=== PATIENT | female | born 1985 | race Hispanic/Latino ===

== ENCOUNTER 2023-05-19 10:14 | Emergency (ER) | payer SELFPAY ==
[2023-05-19 10:33] VITALS: BP 131/90; PULSE 78; RESP 16; TEMP 36.1; O2SAT 99
--- NOTE | 2023-05-19 11:05 | ED.ANXIETY ---
HPI - Anxiety General Chief Complaint: Anxiety <Marianela Bolden PA-C - Last Filed: 05/19/23 14:35> Stated Complaint: Anxiety <Marianela Bolden PA-C - Last Filed: 05/19/23 14:35> Time Seen by Provider: 05/19/23 10:39 <Marianela Bolden PA-C - Last Filed: 05/19/23 14:35> History of Present Illness HPI narrative: 38-year-old Albanian-speaking female reports for evaluation for anxiety and depression x2 weeks. Patient states 2 weeks ago, she began having difficulty sleeping and then shortly after began developing symptoms of anxiety depression. States approximately 4 days ago, lost her appetite. Patient describes her symptoms as having an emptiness in her chest and abdomen, feeling sad and desperate. She states her mom recently got very ill in [place], she has been looking for a job and has not had luck finding a job, and she recently had a Pap smear that showed abnormal cells which has all contributed to her symptoms. She states she moved here from [place] 4 years ago. She does have a PCP at [place] and does have a follow-up with her in late May, however would like to be evaluated sooner. She states she was able to get in contact with a psychologist in [place] who referred her to a psychiatrist via video conference. The psychiatrist wrote her prescription for fluoxetine 20 mg and Seroquel 25 mg and was advised to show the prescription to a [facility] provider to fill the scripts. She states she has not taken any medications and has never been medicated for anxiety or depression. She reports thoughts of wanting to harm herself but denies a plan. Denies homicidal ideation, history of suicide attempts, access to firearms, visual or auditory hallucinations, symptoms of kenyatta, drug use, history of psychiatric hospitalizations. She states she usually drinks 1 beer on the weekends but denies daily alcohol use. She is requesting to be evaluated by psychiatric services today. Denies fever, chest pain, shortness of breath, abdominal pain <Marianela Bolden PA-C - Last Filed: 05/19/23 14:35> Related Data Home Medications: Home Medications Medication Instructions Recorded Confirmed fluoxetine 20 mg tablet 20 mg PO DAILY 05/19/23 05/19/23 quetiapine 25 mg tablet (Seroquel) 25 mg DAILY 05/19/23 05/19/23 <Marianela Bolden PA-C - Last Filed: 05/19/23 14:35> Allergies/Adverse Reactions: Allergies Allergy/AdvReac Type Severity Reaction Status Date / Time No Known Allergies Allergy Verified 05/19/23 10:39 <Marianela Bolden PA-C - Last Filed: 05/19/23 14:35> Review of Systems Review of Systems: CONSTITUTIONAL: Denies fever, chills EYES: Denies visual changes, redness, or discharge. ENT: Denies rhinorrhea, congestion, sore throat, or otalgia. CARDIOVASCULAR: Denies chest pain, palpitations, or edema. RESPIRATORY: Denies cough or dyspnea. GASTROINTESTINAL: Denies abdominal pain, nausea, vomiting, or diarrhea. GENITOURINARY: Denies dysuria or hematuria. SKIN: Denies rash or itching. MUSCULOSKELETAL: Denies back pain, joint pain, or myalgia. NEUROLOGIC: Denies headache, numbness, dizziness, or weakness. PSYCHIATRIC: See HPI <Marianela Bolden PA-C - Last Filed: 05/19/23 14:35> [facility] Social History Social History: Social History Substance use type: does not use <Marianela Bolden PA-C - Last Filed: 05/19/23 14:35> Exam Narrative: GENERAL: Well-appearing, in no acute distress. HEAD: Normocephalic NECK: Supple. CHEST: No respiratory distress. Clear to auscultation, no adventitious breath sounds. HEART: Regular rate and rhythm. No murmur heard. Normal peripheral pulses. ABDOMEN: Soft, nontender, normal active bowel sounds. EXTREMITIES: Normal range of motion. No edema. SKIN: Warm, dry, no rash. NEURO: No focal deficits. Alert and oriented x3. PSYCH: Well-dressed and clean. Flat and depressed affect. Pleasant a
[2023-05-19 11:56] LABS: Amphetamine Screen Urine Negative (Negative); Barbiturate Screen Urine Negative (Negative); Benzodiazepines Screen Urine Negative (Negative); Cannabinoid Screen Urine Negative (Negative); Cocaine Screen Urine Negative (Negative); Methadone Screen Urine Negative (Negative); Opiate Screen Urine Negative (Negative); Phencyclidine Screen Urine Negative (Negative)
[2023-05-19 12:19] LABS: Influenza A QL RT-PCR Negative (Negative); Influenza B QL RT-PCR Negative (Negative); SARS-CoV-2 RNA PCR Negative (Negative)
[2023-05-19 12:24] LABS: Basophils Percent Auto 0.6 % (0.2-1.2); Eosinophils Absolute Auto 0.1 K/mm3 (0-0.3); Eosinophils Percent Auto 0.9 % (0-4.4); Hematocrit 40.9 % (37.0-47.0); Hemoglobin 13.2 g/dL (12.0-15.0); Immature Granulocyte Absolute 0.02 K/mm3 (0.00-0.031); Immature Granulocyte Percent A 0.3 % (0-0.5); Lymphocytes Absolute Auto 1.35 K/mm3 (0.9-3.2); Lymphocytes Percent Auto 19.6 % (18.3-44.2); Mean Corpuscular HGB Conc 32.3 g/dl (32-36); Mean Corpuscular Hemoglobin 29.5 pg (26-34); Mean Corpuscular Volume 91.3 fl (80-100); Monocytes Absolute Auto 0.5 K/mm3 (0.1-0.6); Monocytes Percent Auto 6.7 % (2.6-8.5); Neutrophils Percent Auto 71.9 % (45.5-73.1); Platelet Count Result 278 k/mm3 (150-375); Red Blood Count 4.48 M/mm3 (4.2-5.4); Red Cell Distribution Width 12.1 % (11.5-14.5); White Blood Count 6.9 K/mm3 (4.5-10.0)
[2023-05-19 12:34] LABS: Alanine Aminotransferase 17 U/L (6-35); Albumin Level 4.9 g/dL (3.5-5.1); Alkaline Phosphatase 55 U/L (38-126); Anion Gap 8 mmol/L (8-16); Aspartate Amino Transferase 22 U/L (14-36); Bilirubin,Total 0.8 mg/dL (0.2-1.3); Blood Urea Nitrogen 12 mg/dL (7-17); Calcium 9.1 mg/dL (8.4-10.2); Carbon Dioxide 23 mmol/L (22-30); Chloride 107 mmol/L (98-107); Estimated CRCL calculation 80 ml/min; Estimated Glomerular Filt Rate > 60; Glucose 103 mg/dL (65-110); Potassium 4.1 mmol/L (3.4-5.0); Sodium 138 mmol/L (137-145)
[2023-05-19 12:35] LABS: Acetaminophen < 10 ug/mL (10-30); Ethanol < 10 mg/dL (<10); Salicylate < 1.0 mg/dL (2-20)
[2023-05-19 12:50] LABS: Appearance Urine Clear (Clear); Bacteria Urine None Seen /hpf; Bilirubin Urine Negative (Negative); Blood Urine 1+ (Negative); Color Urine Yellow (Yellow); Glucose Urine UA Negative (Negative); Ketones Urine Negative (Negative); Leukocyte Esterase Ur Negative LEU/UL (Negative); Nitrate Urine Negative (Negative); Non Pathogenic Casts 0-2; Protein Urine Negative (Negative); Specific Grav Ur 1.009 (1.001-1.035); Squamous Epithelial Cell Urine Occasional /hpf (Few); WBC Urine 0-5 /hpf
[2023-05-19 12:53] LABS: Pregnancy On Board Control Positive; Urine Pregnancy Test Negative
[2023-05-19 12:55] LABS: Add Urine Microscopic? YES
[2023-05-19 14:48] VITALS: BP 128/86; PULSE 73; RESP 18; O2SAT 98
== END 2023-05-19 14:51 | disposition home or self-care (01) ==
PROVIDERS: Emergency Provider Physician Assistant
DX: F32.A Depression, unspecified (principal); F41.9 Anxiety disorder, unspecified; Z79.899 Other long term (current) drug therapy; Z20.822 Contact with and (suspected) exposure to COVID-19
CPT/HCPCS: 36415; 80053; 80307; 81001; 81025; 84443; 85025; 87636; 99284